=== PATIENT | female | born 1970 | race Caucasian/White ===

== ENCOUNTER 2016-10-25 00:05 | Emergency (ER) | payer MEDICAID | END 2016-10-25 01:35 | disposition home or self-care (01) | LOC: ER 00:05 | DX: S20.362A Insect bite (nonvenomous) of left front wall of thorax, initial encounter (principal); Z91.040 Latex allergy status; F32.9 Major depressive disorder, single episode, unspecified; M79.7 Fibromyalgia; J44.9 Chronic obstructive pulmonary disease, unspecified; F31.9 Bipolar disorder, unspecified; Z98.84 Bariatric surgery status ==